=== PATIENT | male | born 1955 | race Caucasian/White ===

== ENCOUNTER 2022-03-15 09:53 | Inpatient (IN) ==
[2022-03-15] MEDS ORDERED: ONDANSETRON 4 MG/2 ML VIAL IV PRN (11:41)
[2022-03-15] MEDS ORDERED: ALBUTEROL 2.5 MG/3 ML NEB RESP TX PRN (11:41)
[2022-03-15] MEDS ORDERED: SODIUM CHLORIDE 0.9% 1,000 ML IV SCH (12:00)
[2022-03-15 12:29] LABS: Basophils # 0.1 10*3/uL (0.0-0.2); Basophils % 0.6 % (0.0-0.8); Eosinophils # 0.1 10*3/uL (0.0-0.87); Hematocrit 27.8 VOL% (42.0-52.0); Hemoglobin 8.7 GM/DL (14.0-18.0); Immature Granulocytes % 0.7 %; Immature Granulocytes Absolute 0.07 #; Lymphocytes # 0.6 10*3/uL (1.4-4.0); Lymphocytes % 5.7 % (21.2-54.2); Mean Corpuscular HGB Conc 31.3 GM/DL (32-36); Mean Corpuscular Volume 93.9 FL (87-102); Mean Platelet Volume 9.9 FL (9.6-12.0); Monocytes # 0.8 10*3/uL (0.11-0.8); Monocytes % 8.4 % (1.7-12.7); Neutrophils % 83.6 % (38.7-73.9); Platelet Count 275 T/CUMM (130-400); Red Blood Count 2.96 MC/CUMM (3.8-5.5); Red Cell Distribution Width 15.1 % (9.3-17.3); White Blood Count 9.8 T/CUMM (4-12)
[2022-03-15 12:39] LABS: INR 1.2; PT Patient Result 12.7 SECS (10.5-12.0)
[2022-03-15 12:47] LABS: Lactic Acid 0.5 MMOL/L (0.4-2.0)
[2022-03-15] MEDS: FAMOTIDINE 20 MG/2 ML VIAL IV SCH (12:48)
[2022-03-15] MEDS ORDERED: SODIUM CHLORIDE 0.9% 500 ML IV ONE (12:49)
[2022-03-15 12:53] LABS: Alanine Aminotransferase 22 U/L (16-61); Albumin 1.8 G/DL (3.4-5.0); Alkaline Phosphatase 116 U/L (45-117); Aspartate Amino Transferase 21 U/L (0-37); Bilirubin,Total < 0.39 MG/DL (0.20-1.00); Blood Urea Nitrogen 94 MG/DL (7-18); Calcium 8.8 MG/DL (8.5-10.1); Carbon Dioxide 18 MMOL/L (21-32); Chloride 110 MMOL/L (98-107); Cholesterol 197 MG/DL (50-200); Glucose 119 MG/DL (74-106); HDL Cholesterol 49 MG/DL (40-60); Osmolality,Calculated 310.3 MOS/KG (273-304); Potassium 3.2 MMOL/L (3.5-5.1); Risk Ratio 4.02; Sodium 141 MMOL/L (136-145); Total Protein 6.7 G/DL (6.4-8.2); Triglycerides 106 MG/DL (2-150); VLDL Cholesterol 21.2 MG/DL
[2022-03-15 13:25] LABS: Bilirubin,Urine Negative (Negative); Blood, Urine Small mg/dL (Negative); Glucose,Urine (UA) Negative (Negative); Ketones,Urine Trace mg/dL (Negative); Nitrite,Urine Negative (Negative); Protein,Urine >=300 mg/dL (Negative); Urine Appearance Clear (Clear); Urine Color Yellow (Yellow); Urine Urobilinogen 0.2 eU/dL (<2.0); Urine pH 6.5 (4.5-8.0)
[2022-03-15 13:28] LABS: Bacteria,Urine Occasional /HPF (Few); Hyaline Casts,Urine 2 /LPF (0-3); Mucus,Urine Occasional /LPF (Occasional); RBC,Urine 23 /HPF (0-4); Squamous Epithelial Cell,Urine Occasional /HPF (0-10)
[2022-03-15] MEDS: LEVOTHYROXINE 100 MCG VIAL IV SCH (13:33)
[2022-03-15] MEDS: HYDROCORTISONE 100 MG VIAL IV SCH (13:34)
[2022-03-15] MEDS: SODIUM BICARB INJ 50 MEQ in SODIUM CHLORIDE 0.45% 1,000 ML IV SCH (16:51)
[2022-03-15] MEDS: ENOXAPARIN 60 MG/0.6 ML SYRINGE SUBCUT SCH (16:54)
[2022-03-15 17:03] LABS: Arterial Base Excess iSTAT -8 MMOL/L (-2.5-2.5); Arterial Bicarbonate iSTAT 18.5 MMOL/L (20-26); Arterial O2 Saturation iSTAT 98 % (95-100); Arterial PCO2 iSTAT 40 MM HG (35-48); Arterial PO2 iSTAT 128 MM HG (80-95); Arterial Total CO2 iSTAT 20 MMO/L (23-27); Arterial pH iSTAT 7.276 (7.35-7.45)
[2022-03-16] MEDS: FAMOTIDINE 20 MG/2 ML VIAL IV SCH ×2 (00:03→09:26)
[2022-03-16] MEDS: HYDROCORTISONE 100 MG VIAL IV SCH ×2 (00:06→13:06)
[2022-03-16] MEDS: SODIUM BICARB INJ 50 MEQ in SODIUM CHLORIDE 0.45% 1,000 ML IV SCH ×6 (02:53→23:41)
[2022-03-16 05:12] LABS: Basophils % 0.4 % (0.0-0.8); Eosinophils % 0.1 % (0.00-10.9); Hematocrit 26.3 VOL% (42.0-52.0); Hemoglobin 8.3 GM/DL (14.0-18.0); Immature Granulocytes % 0.9 %; Immature Granulocytes Absolute 0.07 #; Lymphocytes # 0.4 10*3/uL (1.4-4.0); Lymphocytes % 5.6 % (21.2-54.2); Mean Corpuscular HGB Conc 31.6 GM/DL (32-36); Mean Corpuscular Volume 92.9 FL (87-102); Mean Platelet Volume 11.1 FL (9.6-12.0); Monocytes # 0.4 10*3/uL (0.11-0.8); Monocytes % 4.7 % (1.7-12.7); Neutrophils % 88.3 % (38.7-73.9); Platelet Count 260 T/CUMM (130-400); Red Blood Count 2.83 MC/CUMM (3.8-5.5); Red Cell Distribution Width 15.2 % (9.3-17.3); White Blood Count 7.9 T/CUMM (4-12)
[2022-03-16 05:31] LABS: Alanine Aminotransferase 22 U/L (16-61); Albumin 1.7 G/DL (3.4-5.0); Alkaline Phosphatase 127 U/L (45-117); Aspartate Amino Transferase 21 U/L (0-37); Bilirubin,Total < 0.39 MG/DL (0.20-1.00); Blood Urea Nitrogen 95 MG/DL (7-18); Calcium 8.4 MG/DL (8.5-10.1); Carbon Dioxide 18 MMOL/L (21-32); Chloride 109 MMOL/L (98-107); Glucose 123 MG/DL (74-106); Osmolality,Calculated 308.4 MOS/KG (273-304); Potassium 3.4 MMOL/L (3.5-5.1); Sodium 140 MMOL/L (136-145); Total Protein 6.7 G/DL (6.4-8.2)
[2022-03-16 05:38] LABS: Phosphorous 6.2 MG/DL (2.5-4.9)
[2022-03-16] MEDS: LEVOTHYROXINE 100 MCG VIAL IV SCH (06:15)
[2022-03-16] MEDS ORDERED: LEVOTHYROXINE 75 MCG TABLET PO SCH (06:30)
[2022-03-16] MEDS: SODIUM BICARBONATE 650 MG TABLET PO SCH ×2 (09:27→21:22)
[2022-03-16] MEDS ORDERED: HEPARIN 10,000 UNIT/10 ML VIAL IV PRN (13:17)
[2022-03-16] MEDS: ENOXAPARIN 60 MG/0.6 ML SYRINGE SUBCUT SCH (16:30)
[2022-03-17] MEDS: HYDROCORTISONE 100 MG VIAL IV SCH ×2 (00:07→14:19)
[2022-03-17 04:03] LABS: Arterial Base Excess iSTAT 0 MMOL/L (-2.5-2.5); Arterial Bicarbonate iSTAT 22.6 MMOL/L (20-26); Arterial O2 Saturation iSTAT 96 % (95-100); Arterial PCO2 iSTAT 29 MM HG (35-48); Arterial PO2 iSTAT 76 MM HG (80-95); Arterial Total CO2 iSTAT 24 MMO/L (23-27); Arterial pH iSTAT 7.494 (7.35-7.45)
[2022-03-17 04:37] LABS: Basophils % 0.3 % (0.0-0.8); Eosinophils % 0.1 % (0.00-10.9); Hematocrit 24.2 VOL% (42.0-52.0); Hemoglobin 7.7 GM/DL (14.0-18.0); Immature Granulocytes % 0.7 %; Immature Granulocytes Absolute 0.05 #; Lymphocytes # 0.4 10*3/uL (1.4-4.0); Lymphocytes % 5.7 % (21.2-54.2); Mean Corpuscular HGB Conc 31.8 GM/DL (32-36); Mean Corpuscular Volume 91.7 FL (87-102); Mean Platelet Volume 11.1 FL (9.6-12.0); Monocytes # 0.4 10*3/uL (0.11-0.8); Monocytes % 4.8 % (1.7-12.7); Neutrophils % 88.4 % (38.7-73.9); Platelet Count 225 T/CUMM (130-400); Red Blood Count 2.64 MC/CUMM (3.8-5.5); Red Cell Distribution Width 15.3 % (9.3-17.3); White Blood Count 7.7 T/CUMM (4-12)
[2022-03-17 04:42] LABS: Phosphorous 4.2 MG/DL (2.5-4.9)
[2022-03-17 04:53] LABS: Alanine Aminotransferase 17 U/L (16-61); Albumin 1.6 G/DL (3.4-5.0); Alkaline Phosphatase 111 U/L (45-117); Aspartate Amino Transferase 21 U/L (0-37); Bilirubin,Total < 0.39 MG/DL (0.20-1.00); Blood Urea Nitrogen 60 MG/DL (7-18); Calcium 8.1 MG/DL (8.5-10.1); Carbon Dioxide 23 MMOL/L (21-32); Chloride 104 MMOL/L (98-107); Glucose 111 MG/DL (74-106); Osmolality,Calculated 292.7 MOS/KG (273-304); Potassium 3.4 MMOL/L (3.5-5.1); Sodium 138 MMOL/L (136-145); Total Protein 5.9 G/DL (6.4-8.2)
[2022-03-17] MEDS: LEVOTHYROXINE 100 MCG VIAL IV SCH (06:40)
[2022-03-17] MEDS ORDERED: MIDAZOLAM 2 MG/2 ML VIAL ONE (08:14)
[2022-03-17] MEDS ORDERED: MIDAZOLAM 2 MG/2 ML VIAL IV ONE (08:16)
[2022-03-17] MEDS ORDERED: ETOMIDATE 20 MG/10 ML VIAL IV ONE ×2 (08:21→08:25)
[2022-03-17] MEDS ORDERED: SUCCINYLCHOLINE 200 MG/10 ML VIAL ONE (08:22)
[2022-03-17] MEDS ORDERED: SUCCINYLCHOLINE 200 MG/10 ML VIAL IV ONE (08:25)
[2022-03-17] MEDS: FAMOTIDINE 20 MG/2 ML VIAL IV SCH (08:47)
[2022-03-17] MEDS: MIDAZOLAM 100 MG in SODIUM CHLORIDE 0.9% 80 ML IV PRN (08:55)
[2022-03-17 09:42] LABS: Hepatitis B Core IgM Quant < 0.05 Index; Hepatitis B Surface Ag Quant 0.15 Index; Hepatitis B Surface Ag Result Non-Reactive (NonReactive); Hepatitis C Virus Ab Quant 0.29 Index; Hepatitis C Virus Ab Result Non-Reactive (NonReactive)
[2022-03-17 09:45] LABS: Arterial Base Excess iSTAT 4 MMOL/L (-2.5-2.5); Arterial O2 Saturation iSTAT 100 % (95-100); Arterial PCO2 iSTAT 37 MM HG (35-48); Arterial PO2 iSTAT 388 MM HG (80-95); Arterial Total CO2 iSTAT 29 MMO/L (23-27); Arterial pH iSTAT 7.485 (7.35-7.45)
[2022-03-17] MEDS: ENOXAPARIN 60 MG/0.6 ML SYRINGE SUBCUT SCH (16:34)
[2022-03-17] MEDS ORDERED: SODIUM CHLORIDE 0.9% 500 ML IV ONE (19:00)
[2022-03-18] MEDS: HYDROCORTISONE 100 MG VIAL IV SCH ×2 (01:21→14:24)
[2022-03-18 04:23] LABS: ABG Base Excess 0.6 MMOL/L (-2.5-2.5); ABG Oxygen Saturation 99.7 % (95-100); ABG PCO2 30.6 MM HG (35-48); ABG PH 7.493 (7.35-7.45); ABG TCO2 21.9 MMOL/L (23-27)
[2022-03-18 04:26] LABS: Basophils % 0.4 % (0.0-0.8); Eosinophils % 0.2 % (0.00-10.9); Hematocrit 24.6 VOL% (42.0-52.0); Hemoglobin 7.7 GM/DL (14.0-18.0); Immature Granulocytes % 0.9 %; Immature Granulocytes Absolute 0.07 #; Lymphocytes # 0.5 10*3/uL (1.4-4.0); Lymphocytes % 6.5 % (21.2-54.2); Mean Corpuscular HGB Conc 31.3 GM/DL (32-36); Mean Corpuscular Volume 92.1 FL (87-102); Mean Platelet Volume 11.2 FL (9.6-12.0); Monocytes # 0.6 10*3/uL (0.11-0.8); Monocytes % 7.8 % (1.7-12.7); Neutrophils % 84.2 % (38.7-73.9); Platelet Count 185 T/CUMM (130-400); Red Blood Count 2.67 MC/CUMM (3.8-5.5); Red Cell Distribution Width 15.2 % (9.3-17.3); White Blood Count 8.1 T/CUMM (4-12)
[2022-03-18] MEDS: MIDAZOLAM 100 MG in SODIUM CHLORIDE 0.9% 80 ML IV PRN (04:38)
[2022-03-18 04:46] LABS: High Sensitive Troponin I* 8.9 ng/L (0-78)
[2022-03-18] MEDS: LEVOTHYROXINE 100 MCG VIAL IV SCH (06:34)
[2022-03-18 07:43] LABS: Calcium 8.3 MG/DL (8.5-10.1); Osmolality,Calculated 287.7 MOS/KG (273-304); Potassium 3.5 MMOL/L (3.5-5.1)
[2022-03-18] MEDS: POLYETHYLENE GLYCOL POWDER 17 GM PACK PO SCH (08:49)
[2022-03-18] MEDS: FAMOTIDINE 20 MG/2 ML VIAL IV SCH (08:51)
[2022-03-18] MEDS: ENOXAPARIN 60 MG/0.6 ML SYRINGE SUBCUT SCH (19:03)
[2022-03-19] MEDS: HYDROCORTISONE 100 MG VIAL IV SCH ×2 (00:14→14:27)
[2022-03-19 03:02] LABS: Basophils % 0.1 % (0.0-0.8); Hematocrit 23.8 VOL% (42.0-52.0); Hemoglobin 7.6 GM/DL (14.0-18.0); Immature Granulocytes % 1.2 %; Immature Granulocytes Absolute 0.09 #; Lymphocytes # 0.4 10*3/uL (1.4-4.0); Lymphocytes % 5.7 % (21.2-54.2); Mean Corpuscular HGB Conc 31.9 GM/DL (32-36); Mean Corpuscular Volume 91.5 FL (87-102); Mean Platelet Volume 10.7 FL (9.6-12.0); Monocytes # 0.3 10*3/uL (0.11-0.8); Monocytes % 3.3 % (1.7-12.7); Neutrophils % 89.7 % (38.7-73.9); Platelet Count 159 T/CUMM (130-400); White Blood Count 7.5 T/CUMM (4-12)
[2022-03-19 03:28] LABS: Calcium 8.2 MG/DL (8.5-10.1); Osmolality,Calculated 284.5 MOS/KG (273-304); Potassium 3.7 MMOL/L (3.5-5.1)
[2022-03-19 05:03] LABS: ABG Base Excess 2.6 MMOL/L (-2.5-2.5); ABG HCO3 26.8 MMOL/L (20-26); ABG Oxygen Saturation 99.4 % (95-100); ABG PCO2 37.5 MM HG (35-48); ABG PH 7.457 (7.35-7.45); ABG TCO2 24.6 MMOL/L (23-27)
[2022-03-19] MEDS: LEVOTHYROXINE 100 MCG VIAL IV SCH (06:27)
[2022-03-19] MEDS: FAMOTIDINE 20 MG/2 ML VIAL IV SCH (08:04)
[2022-03-19] MEDS: POLYETHYLENE GLYCOL POWDER 17 GM PACK PO SCH (08:04)
[2022-03-19] MEDS ORDERED: ETOMIDATE 20 MG/10 ML VIAL IV ONE ×2 (14:32→14:38)
[2022-03-19] MEDS ORDERED: SUCCINYLCHOLINE 200 MG/10 ML VIAL ONE (14:32)
[2022-03-19] MEDS ORDERED: SUCCINYLCHOLINE 200 MG/10 ML VIAL IV ONE (14:39)
[2022-03-19] MEDS: ALBUTEROL 2.5 MG/3 ML NEB RESP TX SCH ×2 (14:53→23:53)
[2022-03-19] MEDS: MIDAZOLAM 100 MG in SODIUM CHLORIDE 0.9% 80 ML IV PRN (15:19)
[2022-03-19 15:46] LABS: ABG Base Excess 1.6 MMOL/L (-2.5-2.5); ABG HCO3 25.9 MMOL/L (20-26); ABG Oxygen Saturation 99.9 % (95-100); ABG PCO2 40.8 MM HG (35-48); ABG PH 7.416 (7.35-7.45); ABG TCO2 24.4 MMOL/L (23-27)
[2022-03-19] MEDS: ENOXAPARIN 60 MG/0.6 ML SYRINGE SUBCUT SCH (18:06)
[2022-03-19] MEDS: levETIRAcetam LIQUID 100 MG/ML 30 ML/BOTTLE PER TUBE SCH (20:56)
[2022-03-20] MEDS: HYDROCORTISONE 100 MG VIAL IV SCH ×2 (00:27→12:00)
[2022-03-20] MEDS ORDERED: METOPROLOL TARTRATE 5 MG/5 ML VIAL IV ONE ×5 (00:43→09:00)
[2022-03-20 03:54] LABS: Basophils % 0.1 % (0.0-0.8); Hemoglobin 7.7 GM/DL (14.0-18.0); Immature Granulocytes % 0.8 %; Lymphocytes # 0.3 10*3/uL (1.4-4.0); Lymphocytes % 2.5 % (21.2-54.2); Mean Corpuscular HGB Conc 30.8 GM/DL (32-36); Mean Corpuscular Volume 93.3 FL (87-102); Mean Platelet Volume 11.2 FL (9.6-12.0); Monocytes # 0.7 10*3/uL (0.11-0.8); Monocytes % 5.7 % (1.7-12.7); Neutrophils % 90.9 % (38.7-73.9); Platelet Count 197 T/CUMM (130-400); Red Blood Count 2.68 MC/CUMM (3.8-5.5); Red Cell Distribution Width 15.3 % (9.3-17.3)
[2022-03-20 03:56] LABS: ABG Base Excess 2.3 MMOL/L (-2.5-2.5); ABG HCO3 26.5 MMOL/L (20-26); ABG PCO2 34.5 MM HG (35-48); ABG PH 7.478 (7.35-7.45); ABG TCO2 23.6 MMOL/L (23-27)
[2022-03-20 04:12] LABS: High Sensitive Troponin I* 6.7 ng/L (0-78)
[2022-03-20 04:16] LABS: Hypochromia Slight; Lymphocytes 1 % (20-55); Platelet Estimate Adequate; Total Cells Counted 100
[2022-03-20 04:19] LABS: Calcium 8.2 MG/DL (8.5-10.1); Potassium 3.9 MMOL/L (3.5-5.1)
[2022-03-20 04:43] LABS: Phosphorous 4.3 MG/DL (2.5-4.9)
[2022-03-20] MEDS: LEVOTHYROXINE 100 MCG VIAL IV SCH (06:12)
[2022-03-20] MEDS: ALBUTEROL 2.5 MG/3 ML NEB RESP TX SCH ×3 (07:20→23:13)
[2022-03-20] MEDS: FAMOTIDINE 20 MG/2 ML VIAL IV SCH (08:33)
[2022-03-20] MEDS: levETIRAcetam LIQUID 100 MG/ML 30 ML/BOTTLE PER TUBE SCH ×2 (08:35→21:13)
[2022-03-20] MEDS: POLYETHYLENE GLYCOL POWDER 17 GM PACK PO SCH (08:36)
[2022-03-20] MEDS: METOPROLOL TARTRATE 25 MG TABLET PO SCH ×2 (09:52→21:12)
[2022-03-20] MEDS ORDERED: MORPHINE 2 MG/1 ML SYRINGE IV ONE (10:01)
[2022-03-20] MEDS ORDERED: SODIUM CHLORIDE 0.9% 500 ML IV ONE (16:49)
[2022-03-20] MEDS: APIXABAN 5 MG TABLET PO SCH (21:12)
[2022-03-21] MEDS: HYDROCORTISONE 100 MG VIAL IV SCH ×2 (00:30→12:15)
[2022-03-21 03:43] LABS: ABG Base Excess 2.4 MMOL/L (-2.5-2.5); ABG HCO3 26.5 MMOL/L (20-26); ABG Oxygen Saturation 99.3 % (95-100); ABG PCO2 35.4 MM HG (35-48); ABG PH 7.472 (7.35-7.45); ABG TCO2 24.2 MMOL/L (23-27)
[2022-03-21 04:00] LABS: Calcium 8.1 MG/DL (8.5-10.1); Osmolality,Calculated 284.8 MOS/KG (273-304); Potassium 4.3 MMOL/L (3.5-5.1)
[2022-03-21 05:11] LABS: Basophils % 0.1 % (0.0-0.8); Eosinophils % 0.1 % (0.00-10.9); Hematocrit 24.2 VOL% (42.0-52.0); Hemoglobin 7.6 GM/DL (14.0-18.0); Immature Granulocytes Absolute 0.12 #; Lymphocytes # 0.5 10*3/uL (1.4-4.0); Lymphocytes % 4.1 % (21.2-54.2); Mean Corpuscular HGB Conc 31.4 GM/DL (32-36); Mean Corpuscular Volume 93.4 FL (87-102); Mean Platelet Volume 11.5 FL (9.6-12.0); Monocytes % 8.6 % (1.7-12.7); Neutrophils % 86.1 % (38.7-73.9); Platelet Count 227 T/CUMM (130-400); Red Blood Count 2.59 MC/CUMM (3.8-5.5); Red Cell Distribution Width 15.7 % (9.3-17.3); White Blood Count 11.8 T/CUMM (4-12)
[2022-03-21 05:27] LABS: Hypochromia Slight; Lymphocytes 6 % (20-55); Platelet Estimate Adequate; Total Cells Counted 100
[2022-03-21] MEDS: LEVOTHYROXINE 100 MCG VIAL IV SCH (06:32)
[2022-03-21] MEDS: ALBUTEROL 2.5 MG/3 ML NEB RESP TX SCH ×3 (06:54→22:53)
[2022-03-21] MEDS ORDERED: METOPROLOL TARTRATE 5 MG/5 ML VIAL IV ONE ×2 (07:25→15:49)
[2022-03-21] MEDS: ACETAMINOPHEN 325 MG TABLET PO PRN (07:56)
[2022-03-21] MEDS: FAMOTIDINE 20 MG/2 ML VIAL IV SCH (08:00)
[2022-03-21] MEDS: POLYETHYLENE GLYCOL POWDER 17 GM PACK PO SCH (08:04)
[2022-03-21] MEDS: METOPROLOL TARTRATE 50 MG TABLET PO SCH ×2 (08:04→21:12)
[2022-03-21] MEDS: APIXABAN 5 MG TABLET PO SCH ×2 (08:04→21:12)
[2022-03-21] MEDS: levETIRAcetam LIQUID 100 MG/ML 30 ML/BOTTLE PER TUBE SCH ×2 (08:04→21:13)
[2022-03-21 08:31] LABS: Glucose,Urine (UA) 100 mg/dL (Negative); Ketones,Urine Negative (Negative); Nitrite,Urine Negative (Negative); Protein,Urine >=300 mg/dL (Negative); Urine Appearance Cloudy (Clear); Urine Color Yellow (Yellow); Urine Specific Gravity 1.025 (1.001-1.035)
[2022-03-21 08:32] LABS: Bacteria,Urine 4+ /HPF (Few); Bilirubin,Urine Negative (Negative); Blood, Urine Small mg/dL (Negative); RBC,Urine 5 /HPF (0-4); Renal Epithelial Cells,Urine Few /HPF (<1); Squamous Epithelial Cell,Urine Few /HPF (0-10); Urine Urobilinogen 0.2 eU/dL (<2.0)
[2022-03-21 08:33] LABS: Amorphous Crystals,Urine Few /HPF (Few)
[2022-03-21] MEDS: MEROPENEM 500 MG in SODIUM CHLORIDE 0.9% 100 ML IV SCH (11:26)
[2022-03-22] MEDS: HYDROCORTISONE 100 MG VIAL IV SCH (00:42)
[2022-03-22 04:04] LABS: Arterial Base Excess iSTAT 5 MMOL/L (-2.5-2.5); Arterial Bicarbonate iSTAT 29.2 MMOL/L (20-26); Arterial O2 Saturation iSTAT 98 % (95-100); Arterial PCO2 iSTAT 38 MM HG (35-48); Arterial PO2 iSTAT 100 MM HG (80-95); Arterial Total CO2 iSTAT 30 MMO/L (23-27); Arterial pH iSTAT 7.495 (7.35-7.45)
[2022-03-22 04:19] LABS: Basophils % 0.2 % (0.0-0.8); Eosinophils % 0.1 % (0.00-10.9); Hematocrit 23.7 VOL% (42.0-52.0); Hemoglobin 7.3 GM/DL (14.0-18.0); Immature Granulocytes % 1.2 %; Immature Granulocytes Absolute 0.14 #; Lymphocytes # 0.6 10*3/uL (1.4-4.0); Lymphocytes % 5.5 % (21.2-54.2); Mean Corpuscular HGB Conc 30.8 GM/DL (32-36); Mean Corpuscular Volume 94.8 FL (87-102); Mean Platelet Volume 10.9 FL (9.6-12.0); Monocytes # 0.7 10*3/uL (0.11-0.8); Monocytes % 6.2 % (1.7-12.7); Neutrophils % 86.8 % (38.7-73.9); Platelet Count 242 T/CUMM (130-400); Red Cell Distribution Width 15.7 % (9.3-17.3); White Blood Count 11.6 T/CUMM (4-12)
[2022-03-22 04:39] LABS: Calcium 8.7 MG/DL (8.5-10.1); Osmolality,Calculated 281.7 MOS/KG (273-304); Potassium 4.3 MMOL/L (3.5-5.1)
[2022-03-22] MEDS: LEVOTHYROXINE 100 MCG VIAL IV SCH (06:17)
[2022-03-22] MEDS: ALBUTEROL 2.5 MG/3 ML NEB RESP TX SCH ×3 (06:58→23:52)
[2022-03-22] MEDS ORDERED: METOPROLOL TARTRATE 5 MG/5 ML VIAL IV ONE ×2 (07:56→08:52)
[2022-03-22] MEDS: POLYETHYLENE GLYCOL POWDER 17 GM PACK PO SCH (08:07)
[2022-03-22] MEDS: METOPROLOL TARTRATE 50 MG TABLET PO SCH ×2 (08:14→20:01)
[2022-03-22] MEDS: FAMOTIDINE 20 MG/2 ML VIAL IV SCH (08:14)
[2022-03-22] MEDS: levETIRAcetam LIQUID 100 MG/ML 30 ML/BOTTLE PER TUBE SCH ×2 (08:15→20:07)
[2022-03-22] MEDS: APIXABAN 5 MG TABLET PO SCH ×2 (08:15→20:07)
[2022-03-22] MEDS ORDERED: METOPROLOL TARTRATE 50 MG TABLET PO ONE (09:35)
[2022-03-22] MEDS: MEROPENEM 500 MG in SODIUM CHLORIDE 0.9% 100 ML IV SCH (12:42)
[2022-03-22] MEDS ORDERED: hydrALAZINE 20 MG/1 ML VIAL IV PRN (17:47)
[2022-03-22] MEDS ORDERED: SODIUM CHLORIDE 0.9% 250 ML IV ONE (19:56)
[2022-03-22] MEDS: ACETAMINOPHEN 325 MG TABLET PO PRN (23:04)
[2022-03-23] MEDS ORDERED: SODIUM CHLORIDE 0.9% 250 ML IV ONE (00:18)
[2022-03-23 03:59] LABS: Arterial Base Excess iSTAT 7 MMOL/L (-2.5-2.5); Arterial Bicarbonate iSTAT 29.3 MMOL/L (20-26); Arterial O2 Saturation iSTAT 100 % (95-100); Arterial PCO2 iSTAT 31 MM HG (35-48); Arterial PO2 iSTAT 205 MM HG (80-95); Arterial Total CO2 iSTAT 30 MMO/L (23-27); Arterial pH iSTAT 7.585 (7.35-7.45)
[2022-03-23 04:39] LABS: Basophils % 0.3 % (0.0-0.8); Eosinophils # 0.1 10*3/uL (0.0-0.87); Eosinophils % 0.8 % (0.00-10.9); Hematocrit 23.1 VOL% (42.0-52.0); Hemoglobin 7.1 GM/DL (14.0-18.0); Immature Granulocytes % 1.3 %; Immature Granulocytes Absolute 0.11 #; Lymphocytes # 0.7 10*3/uL (1.4-4.0); Lymphocytes % 7.8 % (21.2-54.2); Mean Corpuscular HGB Conc 30.7 GM/DL (32-36); Mean Corpuscular Volume 93.5 FL (87-102); Mean Platelet Volume 10.8 FL (9.6-12.0); Monocytes % 11.6 % (1.7-12.7); Neutrophils % 78.2 % (38.7-73.9); Platelet Count 276 T/CUMM (130-400); Red Blood Count 2.47 MC/CUMM (3.8-5.5); Red Cell Distribution Width 15.7 % (9.3-17.3); White Blood Count 8.8 T/CUMM (4-12)
[2022-03-23 04:55] LABS: Calcium 8.3 MG/DL (8.5-10.1); Osmolality,Calculated 287.5 MOS/KG (273-304); Potassium 4.5 MMOL/L (3.5-5.1)
[2022-03-23 05:10] LABS: Arterial Base Excess iSTAT -1 MMOL/L (-2.5-2.5); Arterial Bicarbonate iSTAT 22.5 MMOL/L (20-26); Arterial O2 Saturation iSTAT 94 % (95-100); Arterial PCO2 iSTAT 33 MM HG (35-48); Arterial PO2 iSTAT 65 MM HG (80-95); Arterial Total CO2 iSTAT 24 MMO/L (23-27); Arterial pH iSTAT 7.447 (7.35-7.45)
[2022-03-23 05:19] LABS: Phosphorous 4.3 MG/DL (2.5-4.9)
[2022-03-23] MEDS: LEVOTHYROXINE 100 MCG VIAL IV SCH (06:18)
[2022-03-23] MEDS: ALBUTEROL 2.5 MG/3 ML NEB RESP TX SCH ×3 (07:20→23:51)
[2022-03-23] MEDS: APIXABAN 5 MG TABLET PO SCH (09:08)
[2022-03-23] MEDS: METOPROLOL TARTRATE 50 MG TABLET PO SCH ×2 (09:08→23:28)
[2022-03-23] MEDS: POLYETHYLENE GLYCOL POWDER 17 GM PACK PO SCH (09:09)
[2022-03-23] MEDS: FAMOTIDINE 20 MG/2 ML VIAL IV SCH (09:18)
[2022-03-23] MEDS: HYDROCORTISONE 100 MG VIAL IV SCH (09:19)
[2022-03-23] MEDS: levETIRAcetam LIQUID 100 MG/ML 30 ML/BOTTLE PER TUBE SCH ×2 (09:19→20:25)
[2022-03-23] MEDS ORDERED: SODIUM CHLORIDE 0.9% 1,000 ML IV PRN (09:31)
[2022-03-23] MEDS: MEROPENEM 500 MG in SODIUM CHLORIDE 0.9% 100 ML IV SCH (11:12)
[2022-03-23] MEDS: APIXABAN 2.5 MG TABLET PO SCH (20:25)
[2022-03-23] MEDS: diphenhydrAMINE CAP 25 MG CAPSULE PO PRN (21:43)
[2022-03-24] MEDS: ALPRAZolam 0.5 MG TABLET PO PRN (01:25)
[2022-03-24 04:11] LABS: Arterial Base Excess iSTAT 7 MMOL/L (-2.5-2.5); Arterial Bicarbonate iSTAT 30.1 MMOL/L (20-26); Arterial O2 Saturation iSTAT 100 % (95-100); Arterial PCO2 iSTAT 35 MM HG (35-48); Arterial PO2 iSTAT 171 MM HG (80-95); Arterial Total CO2 iSTAT 31 MMO/L (23-27); Arterial pH iSTAT 7.545 (7.35-7.45)
[2022-03-24 04:53] LABS: Basophils % 0.2 % (0.0-0.8); Eosinophils # 0.1 10*3/uL (0.0-0.87); Eosinophils % 0.8 % (0.00-10.9); Hematocrit 25.9 VOL% (42.0-52.0); Hemoglobin 8.1 GM/DL (14.0-18.0); Immature Granulocytes Absolute 0.08 #; Lymphocytes # 0.8 10*3/uL (1.4-4.0); Lymphocytes % 9.1 % (21.2-54.2); Mean Corpuscular HGB Conc 31.3 GM/DL (32-36); Mean Corpuscular Volume 92.8 FL (87-102); Mean Platelet Volume 10.8 FL (9.6-12.0); Monocytes # 1.1 10*3/uL (0.11-0.8); Monocytes % 13.5 % (1.7-12.7); Neutrophils % 75.4 % (38.7-73.9); Platelet Count 302 T/CUMM (130-400); Red Blood Count 2.79 MC/CUMM (3.8-5.5); Red Cell Distribution Width 15.4 % (9.3-17.3); White Blood Count 8.4 T/CUMM (4-12)
[2022-03-24 05:09] LABS: Calcium 8.7 MG/DL (8.5-10.1); Osmolality,Calculated 283.4 MOS/KG (273-304); Potassium 4.3 MMOL/L (3.5-5.1)
[2022-03-24] MEDS: ALBUTEROL 2.5 MG/3 ML NEB RESP TX SCH ×3 (07:10→23:32)
[2022-03-24] MEDS: LEVOTHYROXINE 100 MCG VIAL IV SCH (07:25)
[2022-03-24] MEDS: FAMOTIDINE 20 MG/2 ML VIAL IV SCH (08:47)
[2022-03-24] MEDS: HYDROCORTISONE 100 MG VIAL IV SCH (08:50)
[2022-03-24] MEDS: POLYETHYLENE GLYCOL POWDER 17 GM PACK PO SCH (08:57)
[2022-03-24] MEDS: APIXABAN 2.5 MG TABLET PO SCH ×2 (08:58→20:42)
[2022-03-24] MEDS: levETIRAcetam LIQUID 100 MG/ML 30 ML/BOTTLE PER TUBE SCH ×2 (08:59→20:42)
[2022-03-24] MEDS: METOPROLOL TARTRATE 50 MG TABLET PO SCH ×2 (09:07→20:42)
[2022-03-24] MEDS: MEROPENEM 500 MG in SODIUM CHLORIDE 0.9% 100 ML IV SCH (11:08)
[2022-03-25] MEDS: LEVOTHYROXINE 100 MCG VIAL IV SCH (06:02)
[2022-03-25] MEDS: ALBUTEROL 2.5 MG/3 ML NEB RESP TX SCH ×3 (07:15→23:51)
[2022-03-25 07:25] LABS: Basophils % 0.5 % (0.0-0.8); Eosinophils # 0.1 10*3/uL (0.0-0.87); Eosinophils % 1.6 % (0.00-10.9); Hematocrit 27.6 VOL% (42.0-52.0); Hemoglobin 8.4 GM/DL (14.0-18.0); Immature Granulocytes % 1.7 %; Lymphocytes # 0.8 10*3/uL (1.4-4.0); Mean Corpuscular HGB Conc 30.4 GM/DL (32-36); Mean Corpuscular Volume 95.2 FL (87-102); Mean Platelet Volume 10.4 FL (9.6-12.0); Monocytes # 0.7 10*3/uL (0.11-0.8); Monocytes % 11.6 % (1.7-12.7); Neutrophils % 70.6 % (38.7-73.9); Platelet Count 324 T/CUMM (130-400); Red Cell Distribution Width 15.3 % (9.3-17.3); White Blood Count 5.8 T/CUMM (4-12)
[2022-03-25] MEDS ORDERED: ATROPINE 1 MG/10 ML SYRINGE ONE (08:09)
[2022-03-25] MEDS ORDERED: ETOMIDATE 20 MG/10 ML VIAL IV ONE (08:10)
[2022-03-25] MEDS ORDERED: ATROPINE 1 MG/10 ML SYRINGE IV ONE (08:10)
[2022-03-25] MEDS ORDERED: SUCCINYLCHOLINE 200 MG/10 ML VIAL ONE (08:11)
[2022-03-25 08:12] LABS: Calcium 8.8 MG/DL (8.5-10.1); Osmolality,Calculated 287.4 MOS/KG (273-304); Potassium 4.8 MMOL/L (3.5-5.1)
[2022-03-25] MEDS: APIXABAN 2.5 MG TABLET PO SCH ×2 (09:03→21:05)
[2022-03-25] MEDS: HYDROCORTISONE 10 MG TABLET PO SCH (09:03)
[2022-03-25] MEDS: POLYETHYLENE GLYCOL POWDER 17 GM PACK PO SCH (09:03)
[2022-03-25] MEDS: METOPROLOL TARTRATE 50 MG TABLET PO SCH ×2 (09:03→21:05)
[2022-03-25] MEDS: FAMOTIDINE 20 MG/2 ML VIAL IV SCH (09:03)
[2022-03-25 09:07] LABS: Arterial Base Excess iSTAT 3 MMOL/L (-2.5-2.5); Arterial Bicarbonate iSTAT 28.1 MMOL/L (20-26); Arterial O2 Saturation iSTAT 99 % (95-100); Arterial PCO2 iSTAT 45 MM HG (35-48); Arterial PO2 iSTAT 138 MM HG (80-95); Arterial Total CO2 iSTAT 29 MMO/L (23-27)
[2022-03-25] MEDS: levETIRAcetam LIQUID 100 MG/ML 30 ML/BOTTLE PER TUBE SCH ×2 (09:14→21:04)
[2022-03-25] MEDS: MEROPENEM 500 MG in SODIUM CHLORIDE 0.9% 100 ML IV SCH (11:14)
[2022-03-25] MEDS: methylPREDNISolone SOD SUC 40 MG/1 ML VIAL IV SCH ×2 (12:30→21:05)
[2022-03-25] MEDS: PYRIDOSTIGMINE 60 MG TABLET PO SCH ×2 (15:34→21:05)
[2022-03-25] MEDS: ACETYLCYSTEINE 20% 800 MG/4 ML VIAL RESP TX SCH ×2 (15:50→23:51)
[2022-03-26] MEDS: MORPHINE 2 MG/1 ML SYRINGE IV PRN (02:17)
[2022-03-26] MEDS: MIDAZOLAM 100 MG in SODIUM CHLORIDE 0.9% 80 ML IV PRN (03:28)
[2022-03-26 04:29] LABS: Arterial Base Excess iSTAT 7 MMOL/L (-2.5-2.5); Arterial Bicarbonate iSTAT 31.1 MMOL/L (20-26); Arterial O2 Saturation iSTAT 100 % (95-100); Arterial PCO2 iSTAT 42 MM HG (35-48); Arterial PO2 iSTAT 162 MM HG (80-95); Arterial Total CO2 iSTAT 32 MMO/L (23-27); Arterial pH iSTAT 7.482 (7.35-7.45)
[2022-03-26] MEDS: LEVOTHYROXINE 100 MCG VIAL IV SCH (05:43)
[2022-03-26] MEDS: methylPREDNISolone SOD SUC 40 MG/1 ML VIAL IV SCH ×3 (05:44→21:19)
[2022-03-26 05:59] LABS: Basophils % 0.1 % (0.0-0.8); Hematocrit 26.8 VOL% (42.0-52.0); Hemoglobin 8.2 GM/DL (14.0-18.0); Immature Granulocytes % 1.3 %; Immature Granulocytes Absolute 0.09 #; Lymphocytes # 0.4 10*3/uL (1.4-4.0); Lymphocytes % 5.9 % (21.2-54.2); Mean Corpuscular HGB Conc 30.6 GM/DL (32-36); Mean Corpuscular Volume 93.7 FL (87-102); Mean Platelet Volume 10.9 FL (9.6-12.0); Monocytes # 0.3 10*3/uL (0.11-0.8); Monocytes % 4.5 % (1.7-12.7); Neutrophils % 88.2 % (38.7-73.9); Platelet Count 313 T/CUMM (130-400); Red Blood Count 2.86 MC/CUMM (3.8-5.5); Red Cell Distribution Width 15.3 % (9.3-17.3); White Blood Count 7.1 T/CUMM (4-12)
[2022-03-26 06:34] LABS: Alanine Aminotransferase 33 U/L (16-61); Albumin 1.9 G/DL (3.4-5.0); Alkaline Phosphatase 100 U/L (45-117); Aspartate Amino Transferase 21 U/L (0-37); Bilirubin,Total < 0.39 MG/DL (0.20-1.00); Blood Urea Nitrogen 28 MG/DL (7-18); Calcium 8.6 MG/DL (8.5-10.1); Carbon Dioxide 26 MMOL/L (21-32); Chloride 106 MMOL/L (98-107); Glucose 130 MG/DL (74-106); Potassium 4.2 MMOL/L (3.5-5.1); Sodium 143 MMOL/L (136-145)
[2022-03-26] MEDS: ACETYLCYSTEINE 20% 800 MG/4 ML VIAL RESP TX SCH ×3 (07:15→23:50)
[2022-03-26] MEDS: ALBUTEROL 2.5 MG/3 ML NEB RESP TX SCH ×3 (07:15→23:50)
[2022-03-26] MEDS: HYDROCORTISONE 10 MG TABLET PO SCH (08:33)
[2022-03-26] MEDS: APIXABAN 2.5 MG TABLET PO SCH ×2 (08:33→21:20)
[2022-03-26] MEDS: levETIRAcetam LIQUID 100 MG/ML 30 ML/BOTTLE PER TUBE SCH ×2 (08:33→21:20)
[2022-03-26] MEDS: FAMOTIDINE 20 MG/2 ML VIAL IV SCH (08:34)
[2022-03-26] MEDS: METOPROLOL TARTRATE 50 MG TABLET PO SCH ×2 (08:34→21:19)
[2022-03-26] MEDS: PYRIDOSTIGMINE 60 MG TABLET PO SCH ×3 (08:34→21:19)
[2022-03-26] MEDS: POLYETHYLENE GLYCOL POWDER 17 GM PACK PO SCH (08:34)
[2022-03-26] MEDS: MEROPENEM 500 MG in SODIUM CHLORIDE 0.9% 100 ML IV SCH (11:05)
[2022-03-26] MEDS: ALPRAZolam 0.5 MG TABLET PO PRN (21:19)
[2022-03-27] MEDS: MIDAZOLAM 100 MG in SODIUM CHLORIDE 0.9% 80 ML IV PRN ×2 (02:30→19:15)
[2022-03-27 04:01] LABS: Arterial Base Excess iSTAT 6 MMOL/L (-2.5-2.5); Arterial Bicarbonate iSTAT 29.8 MMOL/L (20-26); Arterial O2 Saturation iSTAT 100 % (95-100); Arterial PCO2 iSTAT 42 MM HG (35-48); Arterial PO2 iSTAT 190 MM HG (80-95); Arterial Total CO2 iSTAT 31 MMO/L (23-27); Arterial pH iSTAT 7.463 (7.35-7.45)
[2022-03-27 05:00] LABS: Basophils % 0.2 % (0.0-0.8); Hematocrit 25.5 VOL% (42.0-52.0); Hemoglobin 7.8 GM/DL (14.0-18.0); Immature Granulocytes % 1.2 %; Immature Granulocytes Absolute 0.07 #; Lymphocytes # 0.4 10*3/uL (1.4-4.0); Lymphocytes % 6.7 % (21.2-54.2); Mean Corpuscular HGB Conc 30.6 GM/DL (32-36); Mean Corpuscular Volume 94.4 FL (87-102); Mean Platelet Volume 10.8 FL (9.6-12.0); Monocytes # 0.3 10*3/uL (0.11-0.8); Monocytes % 4.9 % (1.7-12.7); Platelet Count 298 T/CUMM (130-400); Red Cell Distribution Width 15.3 % (9.3-17.3); White Blood Count 5.7 T/CUMM (4-12)
[2022-03-27 05:20] LABS: Phosphorous 5.1 MG/DL (2.5-4.9)
[2022-03-27 05:23] LABS: Alanine Aminotransferase 35 U/L (16-61); Alkaline Phosphatase 95 U/L (45-117); Aspartate Amino Transferase 19 U/L (0-37); Bilirubin,Total < 0.39 MG/DL (0.20-1.00); Blood Urea Nitrogen 39 MG/DL (7-18); Calcium 8.7 MG/DL (8.5-10.1); Carbon Dioxide 27 MMOL/L (21-32); Chloride 107 MMOL/L (98-107); Glucose 162 MG/DL (74-106); Osmolality,Calculated 295.1 MOS/KG (273-304); Potassium 4.7 MMOL/L (3.5-5.1); Sodium 142 MMOL/L (136-145); Total Protein 5.9 G/DL (6.4-8.2)
[2022-03-27] MEDS: methylPREDNISolone SOD SUC 40 MG/1 ML VIAL IV SCH ×3 (05:41→21:25)
[2022-03-27] MEDS: LEVOTHYROXINE 100 MCG VIAL IV SCH (05:41)
[2022-03-27] MEDS: ACETYLCYSTEINE 20% 800 MG/4 ML VIAL RESP TX SCH ×3 (07:18→22:20)
[2022-03-27] MEDS: ALBUTEROL 2.5 MG/3 ML NEB RESP TX SCH ×3 (07:18→22:20)
[2022-03-27] MEDS: METOPROLOL TARTRATE 50 MG TABLET PO SCH ×2 (08:54→21:26)
[2022-03-27] MEDS: APIXABAN 2.5 MG TABLET PO SCH ×2 (08:54→21:28)
[2022-03-27] MEDS: HYDROCORTISONE 10 MG TABLET PO SCH (08:54)
[2022-03-27] MEDS: FAMOTIDINE 20 MG/2 ML VIAL IV SCH (08:54)
[2022-03-27] MEDS: PYRIDOSTIGMINE 60 MG TABLET PO SCH ×3 (08:54→21:28)
[2022-03-27] MEDS: POLYETHYLENE GLYCOL POWDER 17 GM PACK PO SCH (08:54)
[2022-03-27] MEDS: levETIRAcetam LIQUID 100 MG/ML 30 ML/BOTTLE PER TUBE SCH ×2 (08:55→21:29)
[2022-03-27] MEDS: MEROPENEM 500 MG in SODIUM CHLORIDE 0.9% 100 ML IV SCH (11:04)
[2022-03-28 04:52] LABS: ABG Base Excess 3.2 MMOL/L (-2.5-2.5); ABG HCO3 27.3 MMOL/L (20-26); ABG Oxygen Saturation 99.7 % (95-100); ABG PCO2 40.1 MM HG (35-48); ABG PH 7.444 (7.35-7.45); ABG TCO2 25.5 MMOL/L (23-27)
[2022-03-28 05:35] LABS: Hematocrit 26.2 VOL% (42.0-52.0); Immature Granulocytes Absolute 0.07 #; Lymphocytes # 0.4 10*3/uL (1.4-4.0); Lymphocytes % 5.9 % (21.2-54.2); Mean Corpuscular HGB Conc 30.5 GM/DL (32-36); Mean Corpuscular Volume 93.6 FL (87-102); Mean Platelet Volume 10.7 FL (9.6-12.0); Monocytes # 0.6 10*3/uL (0.11-0.8); Monocytes % 7.5 % (1.7-12.7); Neutrophils % 85.6 % (38.7-73.9); Platelet Count 322 T/CUMM (130-400); Red Cell Distribution Width 15.2 % (9.3-17.3); White Blood Count 7.3 T/CUMM (4-12)
[2022-03-28] MEDS: LEVOTHYROXINE 100 MCG VIAL IV SCH (05:39)
[2022-03-28] MEDS: methylPREDNISolone SOD SUC 40 MG/1 ML VIAL IV SCH ×3 (05:39→21:17)
[2022-03-28 05:50] LABS: Alanine Aminotransferase 38 U/L (16-61); Alkaline Phosphatase 95 U/L (45-117); Aspartate Amino Transferase 20 U/L (0-37); Bilirubin,Total < 0.39 MG/DL (0.20-1.00); Blood Urea Nitrogen 49 MG/DL (7-18); Calcium 8.1 MG/DL (8.5-10.1); Carbon Dioxide 25 MMOL/L (21-32); Chloride 106 MMOL/L (98-107); Glucose 155 MG/DL (74-106); Osmolality,Calculated 294.4 MOS/KG (273-304); Potassium 4.7 MMOL/L (3.5-5.1); Sodium 140 MMOL/L (136-145)
[2022-03-28] MEDS: ACETYLCYSTEINE 20% 800 MG/4 ML VIAL RESP TX SCH ×3 (07:12→23:35)
[2022-03-28] MEDS: ALBUTEROL 2.5 MG/3 ML NEB RESP TX SCH ×3 (07:12→23:35)
[2022-03-28] MEDS: HYDROCORTISONE 10 MG TABLET PO SCH (08:35)
[2022-03-28] MEDS: APIXABAN 2.5 MG TABLET PO SCH ×2 (08:35→21:18)
[2022-03-28] MEDS: POLYETHYLENE GLYCOL POWDER 17 GM PACK PO SCH (08:35)
[2022-03-28] MEDS: METOPROLOL TARTRATE 50 MG TABLET PO SCH ×2 (08:36→21:18)
[2022-03-28] MEDS: PYRIDOSTIGMINE 60 MG TABLET PO SCH ×3 (08:37→21:18)
[2022-03-28] MEDS: FAMOTIDINE 20 MG/2 ML VIAL IV SCH (08:37)
[2022-03-28] MEDS: levETIRAcetam LIQUID 100 MG/ML 30 ML/BOTTLE PER TUBE SCH (09:08)
[2022-03-28] MEDS: DEXMEDETOMIDINE 200 MCG in SODIUM CHLORIDE 0.9% 48 ML IV PRN ×2 (10:48→23:50)
[2022-03-28] MEDS: MEROPENEM 500 MG in SODIUM CHLORIDE 0.9% 100 ML IV SCH (12:39)
[2022-03-28] MEDS: MIDAZOLAM 100 MG in SODIUM CHLORIDE 0.9% 80 ML IV PRN (14:28)
[2022-03-29] MEDS ORDERED: DEXMEDETOMIDINE 400 MCG in SODIUM CHLORIDE 0.9% 96 ML IV PRN (02:50)
[2022-03-29] MEDS: DEXMEDETOMIDINE 200 MCG in SODIUM CHLORIDE 0.9% 48 ML IV PRN (03:51)
[2022-03-29 05:13] LABS: Basophils % 0.1 % (0.0-0.8); Hematocrit 26.7 VOL% (42.0-52.0); Hemoglobin 8.3 GM/DL (14.0-18.0); Immature Granulocytes % 0.6 %; Immature Granulocytes Absolute 0.06 #; Lymphocytes # 0.4 10*3/uL (1.4-4.0); Lymphocytes % 4.1 % (21.2-54.2); Mean Corpuscular HGB Conc 31.1 GM/DL (32-36); Mean Corpuscular Volume 92.7 FL (87-102); Mean Platelet Volume 10.6 FL (9.6-12.0); Monocytes # 0.6 10*3/uL (0.11-0.8); Monocytes % 5.4 % (1.7-12.7); Neutrophils % 89.8 % (38.7-73.9); Platelet Count 274 T/CUMM (130-400); Red Blood Count 2.88 MC/CUMM (3.8-5.5); Red Cell Distribution Width 15.2 % (9.3-17.3); White Blood Count 10.2 T/CUMM (4-12)
[2022-03-29 05:29] LABS: ABG Base Excess 3.8 MMOL/L (-2.5-2.5); ABG HCO3 27.8 MMOL/L (20-26); ABG Oxygen Saturation 98.1 % (95-100); ABG PH 7.452 (7.35-7.45); ABG TCO2 25.7 MMOL/L (23-27)
[2022-03-29 05:29] LABS: Phosphorous 4.6 MG/DL (2.5-4.9)
[2022-03-29] MEDS: LEVOTHYROXINE 100 MCG VIAL IV SCH (05:56)
[2022-03-29] MEDS: methylPREDNISolone SOD SUC 40 MG/1 ML VIAL IV SCH ×3 (05:57→21:11)
[2022-03-29 05:58] LABS: Hypochromia Slight; Lymphocytes 8 % (20-55); Platelet Estimate Adequate; Total Cells Counted 100
[2022-03-29] MEDS: ACETYLCYSTEINE 20% 800 MG/4 ML VIAL RESP TX SCH ×3 (06:54→23:50)
[2022-03-29] MEDS: ALBUTEROL 2.5 MG/3 ML NEB RESP TX SCH ×3 (06:54→23:58)
[2022-03-29] MEDS: APIXABAN 2.5 MG TABLET PO SCH ×2 (08:00→21:11)
[2022-03-29] MEDS: POLYETHYLENE GLYCOL POWDER 17 GM PACK PO SCH (08:00)
[2022-03-29] MEDS: FAMOTIDINE 20 MG/2 ML VIAL IV SCH (08:00)
[2022-03-29] MEDS: HYDROCORTISONE 10 MG TABLET PO SCH (08:00)
[2022-03-29] MEDS: PYRIDOSTIGMINE 60 MG TABLET PO SCH ×3 (08:00→21:11)
[2022-03-29] MEDS: METOPROLOL TARTRATE 50 MG TABLET PO SCH ×2 (08:00→21:11)
[2022-03-29 09:17] LABS: Alanine Aminotransferase 47 U/L (16-61); Alkaline Phosphatase 86 U/L (45-117); Aspartate Amino Transferase 19 U/L (0-37); Bilirubin,Total < 0.39 MG/DL (0.20-1.00); Blood Urea Nitrogen 45 MG/DL (7-18); Carbon Dioxide 27 MMOL/L (21-32); Chloride 106 MMOL/L (98-107); Glucose 156 MG/DL (74-106); Osmolality,Calculated 293.4 MOS/KG (273-304); Potassium 4.7 MMOL/L (3.5-5.1); Sodium 140 MMOL/L (136-145); Total Protein 5.8 G/DL (6.4-8.2)
[2022-03-29] MEDS: diphenhydrAMINE CAP 25 MG CAPSULE PO PRN (23:01)
[2022-03-29] MEDS: ALPRAZolam 0.5 MG TABLET PO PRN (23:30)
[2022-03-29] MEDS: MORPHINE 2 MG/1 ML SYRINGE IV PRN (23:48)
[2022-03-30 04:35] LABS: Arterial Base Excess iSTAT 5 MMOL/L (-2.5-2.5); Arterial Bicarbonate iSTAT 28.9 MMOL/L (20-26); Arterial O2 Saturation iSTAT 94 % (95-100); Arterial PCO2 iSTAT 41 MM HG (35-48); Arterial PO2 iSTAT 67 MM HG (80-95); Arterial Total CO2 iSTAT 30 MMO/L (23-27); Arterial pH iSTAT 7.459 (7.35-7.45)
[2022-03-30] MEDS: LEVOTHYROXINE 100 MCG VIAL IV SCH (05:54)
[2022-03-30] MEDS: methylPREDNISolone SOD SUC 40 MG/1 ML VIAL IV SCH ×3 (05:54→21:06)
[2022-03-30 05:56] LABS: Basophils % 0.1 % (0.0-0.8); Hematocrit 26.5 VOL% (42.0-52.0); Hemoglobin 7.9 GM/DL (14.0-18.0); Immature Granulocytes % 0.8 %; Immature Granulocytes Absolute 0.08 #; Lymphocytes # 0.4 10*3/uL (1.4-4.0); Lymphocytes % 4.2 % (21.2-54.2); Mean Corpuscular HGB Conc 29.8 GM/DL (32-36); Monocytes # 0.6 10*3/uL (0.11-0.8); Monocytes % 5.4 % (1.7-12.7); Neutrophils % 89.5 % (38.7-73.9); Platelet Count 299 T/CUMM (130-400); Red Blood Count 2.76 MC/CUMM (3.8-5.5); White Blood Count 10.4 T/CUMM (4-12)
[2022-03-30 06:13] LABS: Alanine Aminotransferase 46 U/L (16-61); Alkaline Phosphatase 85 U/L (45-117); Aspartate Amino Transferase 22 U/L (0-37); Bilirubin,Total < 0.39 MG/DL (0.20-1.00); Blood Urea Nitrogen 53 MG/DL (7-18); Calcium 8.1 MG/DL (8.5-10.1); Carbon Dioxide 29 MMOL/L (21-32); Chloride 106 MMOL/L (98-107); Glucose 125 MG/DL (74-106); Osmolality,Calculated 297.1 MOS/KG (273-304); Potassium 4.7 MMOL/L (3.5-5.1); Sodium 142 MMOL/L (136-145); Total Protein 5.6 G/DL (6.4-8.2)
[2022-03-30 06:18] LABS: Hypochromia Slight; Lymphocytes 3 % (20-55); Microcytosis Slight; Platelet Estimate Adequate; Total Cells Counted 100
[2022-03-30] MEDS: ALBUTEROL 2.5 MG/3 ML NEB RESP TX SCH ×3 (06:45→23:01)
[2022-03-30] MEDS: ACETYLCYSTEINE 20% 800 MG/4 ML VIAL RESP TX SCH ×3 (06:45→23:01)
[2022-03-30] MEDS: HYDROCORTISONE 10 MG TABLET PO SCH (08:26)
[2022-03-30] MEDS: POLYETHYLENE GLYCOL POWDER 17 GM PACK PO SCH (08:27)
[2022-03-30] MEDS: APIXABAN 2.5 MG TABLET PO SCH ×2 (08:27→21:06)
[2022-03-30] MEDS: METOPROLOL TARTRATE 50 MG TABLET PO SCH ×2 (08:27→21:06)
[2022-03-30] MEDS: FAMOTIDINE 20 MG/2 ML VIAL IV SCH (08:27)
[2022-03-30] MEDS: PYRIDOSTIGMINE 60 MG TABLET PO SCH ×3 (08:31→21:06)
[2022-03-31 03:42] LABS: Arterial Base Excess iSTAT 3 MMOL/L (-2.5-2.5); Arterial Bicarbonate iSTAT 28.7 MMOL/L (20-26); Arterial O2 Saturation iSTAT 78 % (95-100); Arterial PCO2 iSTAT 48 MM HG (35-48); Arterial PO2 iSTAT 43 MM HG (80-95); Arterial Total CO2 iSTAT 30 MMO/L (23-27); Arterial pH iSTAT 7.382 (7.35-7.45)
[2022-03-31 04:13] LABS: Arterial Base Excess iSTAT 7 MMOL/L (-2.5-2.5); Arterial Bicarbonate iSTAT 31.3 MMOL/L (20-26); Arterial O2 Saturation iSTAT 99 % (95-100); Arterial PCO2 iSTAT 45 MM HG (35-48); Arterial PO2 iSTAT 139 MM HG (80-95); Arterial Total CO2 iSTAT 33 MMO/L (23-27); Arterial pH iSTAT 7.447 (7.35-7.45)
[2022-03-31 05:05] LABS: Basophils % 0.1 % (0.0-0.8); Hematocrit 27.3 VOL% (42.0-52.0); Hemoglobin 8.5 GM/DL (14.0-18.0); Immature Granulocytes % 1.1 %; Lymphocytes # 0.5 10*3/uL (1.4-4.0); Lymphocytes % 5.6 % (21.2-54.2); Mean Corpuscular HGB Conc 31.1 GM/DL (32-36); Mean Corpuscular Volume 92.5 FL (87-102); Mean Platelet Volume 10.8 FL (9.6-12.0); Monocytes # 0.4 10*3/uL (0.11-0.8); Monocytes % 4.7 % (1.7-12.7); Neutrophils % 88.5 % (38.7-73.9); Platelet Count 320 T/CUMM (130-400); Red Blood Count 2.95 MC/CUMM (3.8-5.5); Red Cell Distribution Width 15.1 % (9.3-17.3); White Blood Count 9.1 T/CUMM (4-12)
[2022-03-31 05:25] LABS: Bilirubin,Total 0.4 MG/DL (0.20-1.00); Calcium 8.4 MG/DL (8.5-10.1); Phosphorous 4.9 MG/DL (2.5-4.9); Potassium 4.6 MMOL/L (3.5-5.1); Total Protein 5.9 G/DL (6.4-8.2)
[2022-03-31] MEDS: methylPREDNISolone SOD SUC 40 MG/1 ML VIAL IV SCH ×3 (05:30→21:13)
[2022-03-31] MEDS: LEVOTHYROXINE 100 MCG VIAL IV SCH (05:31)
[2022-03-31] MEDS ORDERED: FUROSEMIDE 40 MG/4 ML VIAL IV ONE (07:08)
[2022-03-31] MEDS: ALBUTEROL 2.5 MG/3 ML NEB RESP TX SCH ×3 (07:20→23:25)
[2022-03-31] MEDS: ACETYLCYSTEINE 20% 800 MG/4 ML VIAL RESP TX SCH ×3 (07:20→23:25)
[2022-03-31] MEDS: METOPROLOL TARTRATE 50 MG TABLET PO SCH ×2 (09:28→21:13)
[2022-03-31] MEDS: APIXABAN 2.5 MG TABLET PO SCH ×2 (09:28→21:13)
[2022-03-31] MEDS: HYDROCORTISONE 10 MG TABLET PO SCH (09:28)
[2022-03-31] MEDS: POLYETHYLENE GLYCOL POWDER 17 GM PACK PO SCH (09:30)
[2022-03-31] MEDS: FAMOTIDINE 20 MG/2 ML VIAL IV SCH (09:31)
[2022-04-01] MEDS: MORPHINE 2 MG/1 ML SYRINGE IV PRN (02:45)
[2022-04-01 04:16] LABS: Basophils % 0.1 % (0.0-0.8); Hematocrit 26.7 VOL% (42.0-52.0); Hemoglobin 8.3 GM/DL (14.0-18.0); Immature Granulocytes % 0.8 %; Immature Granulocytes Absolute 0.06 #; Lymphocytes # 0.5 10*3/uL (1.4-4.0); Lymphocytes % 5.8 % (21.2-54.2); Mean Corpuscular HGB Conc 31.1 GM/DL (32-36); Mean Platelet Volume 10.8 FL (9.6-12.0); Monocytes # 0.3 10*3/uL (0.11-0.8); Monocytes % 4.4 % (1.7-12.7); Neutrophils % 88.9 % (38.7-73.9); Platelet Count 304 T/CUMM (130-400); Red Blood Count 2.87 MC/CUMM (3.8-5.5); White Blood Count 7.7 T/CUMM (4-12)
[2022-04-01 04:34] LABS: Bilirubin,Total 0.4 MG/DL (0.20-1.00); Calcium 8.1 MG/DL (8.5-10.1); Osmolality,Calculated 305.7 MOS/KG (273-304); Potassium 3.9 MMOL/L (3.5-5.1); Total Protein 5.7 G/DL (6.4-8.2)
[2022-04-01 04:41] LABS: ABG Base Excess 6.2 MMOL/L (-2.5-2.5); ABG HCO3 30.1 MMOL/L (20-26); ABG Oxygen Saturation 99.3 % (95-100); ABG PCO2 45.2 MM HG (35-48); ABG PH 7.444 (7.35-7.45); ABG TCO2 28.7 MMOL/L (23-27)
[2022-04-01] MEDS: methylPREDNISolone SOD SUC 40 MG/1 ML VIAL IV SCH ×2 (06:00→19:11)
[2022-04-01] MEDS: LEVOTHYROXINE 100 MCG VIAL IV SCH (06:13)
[2022-04-01] MEDS: ACETYLCYSTEINE 20% 800 MG/4 ML VIAL RESP TX SCH ×3 (07:10→23:55)
[2022-04-01] MEDS: ALBUTEROL 2.5 MG/3 ML NEB RESP TX SCH ×3 (07:10→23:55)
[2022-04-01] MEDS: FAMOTIDINE 20 MG/2 ML VIAL IV SCH (08:10)
[2022-04-01] MEDS: APIXABAN 2.5 MG TABLET PO SCH ×2 (08:10→20:24)
[2022-04-01] MEDS: METOPROLOL TARTRATE 50 MG TABLET PO SCH ×2 (08:10→20:24)
[2022-04-01] MEDS: HYDROCORTISONE 10 MG TABLET PO SCH (08:10)
[2022-04-01] MEDS: POLYETHYLENE GLYCOL POWDER 17 GM PACK PO SCH (08:21)
[2022-04-02 04:34] LABS: Basophils % 0.1 % (0.0-0.8); Hematocrit 26.6 VOL% (42.0-52.0); Hemoglobin 8.3 GM/DL (14.0-18.0); Immature Granulocytes % 0.7 %; Immature Granulocytes Absolute 0.06 #; Lymphocytes # 0.6 10*3/uL (1.4-4.0); Lymphocytes % 7.7 % (21.2-54.2); Mean Corpuscular HGB Conc 31.2 GM/DL (32-36); Mean Corpuscular Volume 91.7 FL (87-102); Mean Platelet Volume 10.7 FL (9.6-12.0); Monocytes # 0.6 10*3/uL (0.11-0.8); Monocytes % 6.9 % (1.7-12.7); Neutrophils % 84.6 % (38.7-73.9); Platelet Count 319 T/CUMM (130-400); White Blood Count 8.1 T/CUMM (4-12)
[2022-04-02 04:36] LABS: Arterial Base Excess iSTAT 7 MMOL/L (-2.5-2.5); Arterial Bicarbonate iSTAT 30.9 MMOL/L (20-26); Arterial O2 Saturation iSTAT 96 % (95-100); Arterial PCO2 iSTAT 43 MM HG (35-48); Arterial PO2 iSTAT 78 MM HG (80-95); Arterial Total CO2 iSTAT 32 MMO/L (23-27); Arterial pH iSTAT 7.466 (7.35-7.45)
[2022-04-02 04:47] LABS: Osmolality,Calculated 302.7 MOS/KG (273-304); Potassium 3.6 MMOL/L (3.5-5.1)
[2022-04-02] MEDS: LEVOTHYROXINE 100 MCG VIAL IV SCH (05:50)
[2022-04-02] MEDS: methylPREDNISolone SOD SUC 40 MG/1 ML VIAL IV SCH (05:50)
[2022-04-02] MEDS: ALBUTEROL 2.5 MG/3 ML NEB RESP TX SCH ×2 (07:19→15:19)
[2022-04-02] MEDS: ACETYLCYSTEINE 20% 800 MG/4 ML VIAL RESP TX SCH ×2 (07:19→15:19)
[2022-04-02] MEDS ORDERED: MAGNESIUM SULF RIDER 2 GM/50 ML PREMIX IV PRN (07:28)
[2022-04-02] MEDS: APIXABAN 2.5 MG TABLET PO SCH ×2 (09:01→20:19)
[2022-04-02] MEDS: FAMOTIDINE 20 MG/2 ML VIAL IV SCH (09:01)
[2022-04-02] MEDS: METOPROLOL TARTRATE 50 MG TABLET PO SCH ×2 (09:01→20:19)
[2022-04-02] MEDS: POLYETHYLENE GLYCOL POWDER 17 GM PACK PO SCH (09:15)
[2022-04-02] MEDS ORDERED: FUROSEMIDE 40 MG/4 ML VIAL IV SCH (14:33)
[2022-04-03] MEDS: ACETYLCYSTEINE 20% 800 MG/4 ML VIAL RESP TX SCH ×2 (01:30→07:00)
[2022-04-03] MEDS: ALBUTEROL 2.5 MG/3 ML NEB RESP TX SCH ×3 (01:30→14:00)
[2022-04-03] MEDS: LEVOTHYROXINE 100 MCG VIAL IV SCH (05:33)
[2022-04-03 07:06] LABS: Basophils % 0.2 % (0.0-0.8); Eosinophils % 0.3 % (0.00-10.9); Hematocrit 27.8 VOL% (42.0-52.0); Immature Granulocytes % 0.7 %; Immature Granulocytes Absolute 0.06 #; Lymphocytes # 0.8 10*3/uL (1.4-4.0); Lymphocytes % 9.1 % (21.2-54.2); Mean Corpuscular HGB Conc 32.4 GM/DL (32-36); Mean Corpuscular Volume 90.8 FL (87-102); Mean Platelet Volume 10.9 FL (9.6-12.0); Monocytes # 0.8 10*3/uL (0.11-0.8); Monocytes % 9.1 % (1.7-12.7); Neutrophils % 80.6 % (38.7-73.9); Platelet Count 323 T/CUMM (130-400); Red Blood Count 3.06 MC/CUMM (3.8-5.5); Red Cell Distribution Width 15.1 % (9.3-17.3); White Blood Count 8.9 T/CUMM (4-12)
[2022-04-03 07:30] LABS: Calcium 8.1 MG/DL (8.5-10.1); Osmolality,Calculated 300.6 MOS/KG (273-304)
[2022-04-03] MEDS: APIXABAN 2.5 MG TABLET PO SCH (09:21)
[2022-04-03] MEDS: METOPROLOL TARTRATE 50 MG TABLET PO SCH (09:22)
[2022-04-03] MEDS: POLYETHYLENE GLYCOL POWDER 17 GM PACK PO SCH (09:22)
[2022-04-03] MEDS: FAMOTIDINE 20 MG/2 ML VIAL IV SCH (09:22)
[2022-04-03 12:05] VITALS: BP 134/82
[2022-04-04] MEDS ORDERED: LEVOTHYROXINE 25 MCG TABLET PO SCH (06:30)
== END 2022-04-03 18:29 | disposition home health service (06) | DRG 682 ==
LOC: SUATTDRO 10:58 → N.CC 10:58 → N.3E 04-02 23:51
PROVIDERS: ADMIT Internal Medicine; ATTEND Internal Medicine